=== PATIENT | female | born 1945 | race Caucasian/White ===

== ENCOUNTER 2017-10-19 07:59 | Emergency (ER) | payer MEDICARE, OTHER ==
[~2017-10-19] VITALS: Ht 152.4 cm; Wt 92.0 kg
[2017-10-19] MEDS ORDERED: LIDOcaine 1.5% w/epinephrine 1:200,000 5ml ampul IJ ONE (08:25)
[2017-10-19 09:49] VITALS: BP 134/62
== END 2017-10-19 09:51 | disposition home or self-care (01) ==
LOC: ER 07:59
DX: S01.81XA Laceration without foreign body of other part of head, initial encounter (principal); J45.909 Unspecified asthma, uncomplicated; M81.0 Age-related osteoporosis without current pathological fracture; M25.531 Pain in right wrist; W01.0XXA Fall on same level from slipping, tripping and stumbling without subsequent striking against object, initial encounter; Y93.89 Activity, other specified; Y92.89 Other specified places as the place of occurrence of the external cause; Y99.8 Other external cause status
CPT/HCPCS: 12011; 73110; 99284; A6449; J3490

== ENCOUNTER 2017-10-24 13:38 | Emergency (ER) | payer MEDICARE, OTHER ==
[~2017-10-24] VITALS: Ht 152.4 cm; Wt 79.4 kg
[2017-10-24 13:44] VITALS: BP 136/74
== END 2017-10-24 15:11 | disposition home or self-care (01) ==
LOC: ER 13:38
DX: Z48.02 Encounter for removal of sutures (principal); J45.909 Unspecified asthma, uncomplicated; Z98.890 Other specified postprocedural states
CPT/HCPCS: 99282